=== PATIENT | male | born 1950 | race Caucasian/White ===

== ENCOUNTER 2017-06-13 22:24 | Inpatient (IN) | payer OTHER ==
[~2017-06-13] VITALS: Ht 172.7 cm; Wt 67.1 kg
[~2017-06-13 22:24] MED LIST: ACETAMINOPHEN500 M1 PO; ALBUTEROL SULF8.5 GM PO; AMARYL2 MG PO; ASPIRIN EC81 MG PO; ATROVENT (00.2 MG/ML INH; ATROVENT HFA12.9 GM PO; AUGMENTIN875 MG PO; AZELASTINE205.5 MCG/; AZITHROMYCIN250 MG PO; BENADRYL25 MG PO; BROVANA15 MCG/2 M IH; BROVANA15 MCG/2 M INH; CALCIUM 500 +1 EACH PO; CEFDINIR300 MG PO; CLOTRIMAZOLE-BE45 GM TP; COLACE100 MG PO; DESONIDE15 GM TP; DILAUDID IV; DUONEB 2.5-0.5M1 AMP IH; FLORASTOR250 MG PO; GLUCOPHAGE500 MG PO; ISOSORBIDE MONO60 MG PO; KEPPRA500 MG PO; LASIX20 MG PO; LEVAQUIN750 MG PO; LEVEMIR DO100 UNITS/ SQ; LOPRESSOR5 MG/5 ML IV; LOTRISONE15 GM TP; MAG-OXIDE 400M400 MG PO; MICRO-K10 MEQ PO; MUCINEX 600MG600 MG PO; MUCINEX OTC; MUCINEX600 MG PO; NEURONTIN400 MG PO; NEXIUM20 MG PO; NIFEREX150 MG PO; NITROQUIK SL0.4 MG SL; NORCO 10-325 T1 EACH PO; NOVOLOG DO100 UNIT/M SQ; PLAVIX75 MG PO; PREDNISONE 10MG10 MG PO; PREDNISONE 20MG20 MG PO; PREDNISONE 5MG T5 MG PO; PREDNISONE5 MG PO; PULMICORT FLEX90 MCG PO; PULMICORT0.5 MG/2 M IH; ROBITUSSIN DM10 ML PO; SINGULAIR10 MG PO; SPIRIVA18 MCG INH; TEMOVATE 0.05%45 GM TP; THEOPHYLLINE A300 MG PO; VENTOLIN (2.5 MG/3 M INH; VITAMIN B 12 PO; VITAMIN B-1001 EACH PO; VITAMIN B-1250 MCG PO; XANAX1 MG PO; XOPENEX (00.63 MG/3 INH; ZEBETA5 MG PO; ZITHROMAX500 MG PO; ZOCOR20 MG PO; ZOFRAN2 MG/ML PO; ZYRTEC10 MG PO; [UNRECOGNIZED DRUG - OTHER] TOP
[2017-06-13 23:04] LABS: BASOPHIL 0.1 % (0-2); HCT 18.4 % (42.0-52.0); LYMPHOCYTE 33.5 % (15-48); MCH 30.3 pg (25.0-31.0); MCHC 32.1 g/dL (32.0-36.0); MCV 94.4 fL (78.0-100.0); MONOCYTE 9.3 % (0-12); MPV 10.4 fL (6.0-9.5); NEUTROPHIL 53.1 % (41-80); PLT 157 K/uL (150-400); RBC 1.95 M/uL (4.70-6.00); WBC 7.6 K/uL (4.0-10.5)
[2017-06-13 23:06] LABS: HGB 5.9 g/dl (13.2-18.0)
[2017-06-13 23:20] LABS: ALBUMIN 3.4 g/dL (3.4-4.8); BILIRUBIN - TOTAL 0.2 mg/dL (0.1-1.0); CREATININE 0.8 mg/dL (0.7-1.2); GLOBULIN (CALCULATION) 2.8 g/dL (2.2-4.2); POTASSIUM 5.5 mmol/L (3.5-5.1); TOTAL PROTEIN 6.2 g/dL (6.4-8.3)
[2017-06-13 23:21] LABS: TROPONIN T < 0.010 ng/mL
[2017-06-13 23:58] LABS: PRO-BNP 393 pg/mL (0-125)
[2017-06-14 09:31] LABS: INR 1.01 (0.9-1.2); PROTHROMBIN TIME 12.4 SECONDS (11.4-13.2)
[2017-06-14 09:33] LABS: D-DIMER 0.47 ug/mLFEU (0.00-0.41)
[2017-06-14 09:39] LABS: ALBUMIN 3.1 g/dL (3.4-4.8); BILIRUBIN - TOTAL 0.2 mg/dL (0.1-1.0); CREATININE 0.7 mg/dL (0.7-1.2); GLOBULIN (CALCULATION) 2.6 g/dL (2.2-4.2); MAGNESIUM 1.72 mg/dL (1.40-2.10); TOTAL PROTEIN 5.7 g/dL (6.4-8.3)
[2017-06-14 10:00] LABS: BILIRUBIN NEGATIVE (NEGATIVE); BLOOD NEGATIVE Ery/uL (NEGATIVE); CLARITY CLEAR (CLEAR); COLOR YELLOW (YELLOW); GLUCOSE (U) NORMAL (NORMAL); KETONE (U) TRACE mg/dL (NEGATIVE); LEUKOCYTES NEGATIVE Leu/uL (NEGATIVE); NITRITE NEGATIVE (NEGATIVE); PROTEIN NEGATIVE (NEGATIVE); SPECIFIC GRAVITY 1.025 (1.001-1.030); UROBILINOGEN 0.2 mg/dL (0.2-1.0); pH 5.5 (5.0-9.0)
[2017-06-14 11:39] LABS: BASOPHIL NO PRINT 0 % (0-2); EOSINOPHIL NO PRINT 0.6 % (0-7); HGB 10.3 g/dL (13.2-18.0); LYMPHOCYTE NO PRINT 12.1 % (15-48); MCH NO PRINT 29.3 pg (25.0-31.0); MCHC NO PRINT 32.2 g/dL (32.0-36.0); MCV NO PRINT 91.2 fL (78.0-100.0); MONOCYTE NO PRINT 1.4 % (0-12); MPV NO PRINT 11.4 fL (6.0-9.5); NEUTROPHIL NO PRINT 85.9 % (41-80); PLT NO PRINT 220 K/uL (150-400); RBC NO PRINT 3.51 M/uL (4.70-6.00); RDW NO PRINT 13.7 % (11.5-14.0); WBC NO PRINT 6.5 K/uL (4.0-10.5)
[2017-06-14 12:40] LABS: BASOPHIL NO PRINT 0 % (0-2); EOSINOPHIL NO PRINT 0.2 % (0-7); HCT 32.5 % (42.0-52.0); HGB 10.6 g/dL (13.2-18.0); LYMPHOCYTE NO PRINT 13.7 % (15-48); MCH NO PRINT 29.4 pg (25.0-31.0); MCHC NO PRINT 32.6 g/dL (32.0-36.0); MCV NO PRINT 90.3 fL (78.0-100.0); MONOCYTE NO PRINT 1.2 % (0-12); MPV NO PRINT 10.3 fL (6.0-9.5); NEUTROPHIL NO PRINT 84.9 % (41-80); PLT NO PRINT 221 K/uL (150-400); RDW NO PRINT 13.8 % (11.5-14.0); WBC NO PRINT 4.8 K/uL (4.0-10.5)
[2017-06-14 15:21] LABS: MCH 29.3 pg (25.0-31.0); MCHC 32.5 g/dL (32.0-36.0); MCV 90.1 fL (78.0-100.0); MPV 10.7 fL (6.0-9.5); RBC 3.55 M/uL (4.70-6.00); RDW 13.9 % (11.5-14.0); WBC 4.9 K/uL (4.0-10.5)
[2017-06-14 15:36] LABS: HGB 10.4 g/dl (13.2-18.0)
[2017-06-14 17:11] LABS: BASOPHIL NO PRINT 0 % (0-2); EOSINOPHIL NO PRINT 0 % (0-7); HGB 10.3 g/dL (13.2-18.0); LYMPHOCYTE NO PRINT 16.9 % (15-48); MCH NO PRINT 28.9 pg (25.0-31.0); MCHC NO PRINT 32.2 g/dL (32.0-36.0); MCV NO PRINT 89.6 fL (78.0-100.0); MONOCYTE NO PRINT 1.3 % (0-12); MPV NO PRINT 10.3 fL (6.0-9.5); NEUTROPHIL NO PRINT 81.8 % (41-80); PLT NO PRINT 230 K/uL (150-400); RBC NO PRINT 3.57 M/uL (4.70-6.00); RDW NO PRINT 13.8 % (11.5-14.0)
[2017-06-14 21:39] LABS: BASOPHIL NO PRINT 0 % (0-2); EOSINOPHIL NO PRINT 0.1 % (0-7); HCT 29.9 % (42.0-52.0); HGB 9.8 g/dL (13.2-18.0); LYMPHOCYTE NO PRINT 18.4 % (15-48); MCH NO PRINT 29.3 pg (25.0-31.0); MCHC NO PRINT 32.8 g/dL (32.0-36.0); MCV NO PRINT 89.5 fL (78.0-100.0); MONOCYTE NO PRINT 4.9 % (0-12); MPV NO PRINT 10.8 fL (6.0-9.5); NEUTROPHIL NO PRINT 76.6 % (41-80); PLT NO PRINT 246 K/uL (150-400); RBC NO PRINT 3.34 M/uL (4.70-6.00); RDW NO PRINT 13.8 % (11.5-14.0); WBC NO PRINT 7.6 K/uL (4.0-10.5)
[2017-06-15 01:10] LABS: BASOPHIL NO PRINT 0 % (0-2); EOSINOPHIL NO PRINT 0 % (0-7); HCT 31.2 % (42.0-52.0); HGB 10.2 g/dL (13.2-18.0); LYMPHOCYTE NO PRINT 11.2 % (15-48); MCH NO PRINT 29.2 pg (25.0-31.0); MCHC NO PRINT 32.7 g/dL (32.0-36.0); MCV NO PRINT 89.4 fL (78.0-100.0); MONOCYTE NO PRINT 3.2 % (0-12); MPV NO PRINT 10.6 fL (6.0-9.5); NEUTROPHIL NO PRINT 85.6 % (41-80); PLT NO PRINT 235 K/uL (150-400); RBC NO PRINT 3.49 M/uL (4.70-6.00); RDW NO PRINT 13.8 % (11.5-14.0); WBC NO PRINT 7.6 K/uL (4.0-10.5)
[2017-06-15 05:36] LABS: HCT 31.5 % (42.0-52.0); HGB 10.2 g/dl (13.2-18.0); MCH 29.1 pg (25.0-31.0); MCHC 32.4 g/dL (32.0-36.0); MPV 10.7 fL (6.0-9.5); RBC 3.5 M/uL (4.70-6.00); RDW 13.8 % (11.5-14.0)
[2017-06-15 05:43] LABS: WBC 8.6 K/uL (4.0-10.5)
[2017-06-15 05:59] LABS: ALBUMIN 3.2 g/dL (3.4-4.8); BILIRUBIN - TOTAL 0.2 mg/dL (0.1-1.0); CREATININE 0.7 mg/dL (0.7-1.2); GLOBULIN (CALCULATION) 2.1 g/dL (2.2-4.2); MAGNESIUM 1.55 mg/dL (1.40-2.10); POTASSIUM 4.6 mmol/L (3.5-5.1); TOTAL PROTEIN 5.3 g/dL (6.4-8.3)
[2017-06-16 05:28] LABS: HCT 29.5 % (42.0-52.0); HGB 9.8 g/dl (13.2-18.0); MCH 29.4 pg (25.0-31.0); MCHC 33.2 g/dL (32.0-36.0); MCV 88.6 fL (78.0-100.0); MPV 10.4 fL (6.0-9.5); RBC 3.33 M/uL (4.70-6.00); RDW 13.4 % (11.5-14.0); WBC 11.1 K/uL (4.0-10.5)
[2017-06-16 05:50] LABS: CREATININE 0.6 mg/dL (0.7-1.2); MAGNESIUM 1.51 mg/dL (1.40-2.10); POTASSIUM 3.8 mmol/L (3.5-5.1)
[2017-06-17 05:33] LABS: HCT 29.3 % (42.0-52.0); HGB 9.6 g/dl (13.2-18.0); MCH 29.4 pg (25.0-31.0); MCHC 32.8 g/dL (32.0-36.0); MCV 89.6 fL (78.0-100.0); MPV 9.6 fL (6.0-9.5); RBC 3.27 M/uL (4.70-6.00); RDW 13.3 % (11.5-14.0); WBC 9.8 K/uL (4.0-10.5)
[2017-06-17 05:50] LABS: CREATININE 0.7 mg/dL (0.7-1.2); MAGNESIUM 1.64 mg/dL (1.40-2.10); POTASSIUM 3.2 mmol/L (3.5-5.1)
== END 2017-06-17 14:25 | disposition home health service (06) | DRG 189 ==
LOC: FER 22:24 → FTCU 06-14 01:04 → FICU 06-14 01:04 → FTCU 06-16 15:17
PROVIDERS: Emergency Medicine; ADMIT Internal Medicine
PROC: 30233N1 Transfusion of Nonautologous Red Blood Cells into Peripheral Vein, Percutaneous Approach (ICD-10-PCS; principal; 2017-06-14)
DX: J96.22 Acute and chronic respiratory failure with hypercapnia (principal); G93.49 Other encephalopathy; E11.42 Type 2 diabetes mellitus with diabetic polyneuropathy; I50.22 Chronic systolic (congestive) heart failure; J44.1 Chronic obstructive pulmonary disease with (acute) exacerbation; D62 Acute posthemorrhagic anemia; K86.1 Other chronic pancreatitis; K92.2 Gastrointestinal hemorrhage, unspecified; I25.10 Atherosclerotic heart disease of native coronary artery without angina pectoris; Z95.5 Presence of coronary angioplasty implant and graft; R91.8 Other nonspecific abnormal finding of lung field; G47.33 Obstructive sleep apnea (adult) (pediatric); G89.4 Chronic pain syndrome; G40.909 Epilepsy, unspecified, not intractable, without status epilepticus; F41.1 Generalized anxiety disorder; Z98.49 Cataract extraction status, unspecified eye; Z79.82 Long term (current) use of aspirin; Z79.01 Long term (current) use of anticoagulants; I25.2 Old myocardial infarction; E87.5 Hyperkalemia; D50.9 Iron deficiency anemia, unspecified; Z79.4 Long term (current) use of insulin
CPT/HCPCS: 36415; 36430; 36600; 71010; 80048; 80053; 80198; 81003; 82803; 82962; 83735; 83880; 84132; 84484; 85014; 85018; 85025; 85379; 85610; 86850; 86900; 86901; 86922; 87804; 87899; 93005; 94010; 94640; 94660; 94760; 96374; 96375; C9113; J0456; J1953; J2310; J2930; P9016; Q9967